=== PATIENT | male | born 1955 | race Caucasian/White ===

== ENCOUNTER 2018-10-21 15:12 | Emergency (ER) | payer MEDICARE ==
--- NOTE | 2018-10-21 15:47 | C.PDOC ---
History Of Present Illness 63 y/o male presents to the ED with complaints of rash to the abdomen and right flank. Patient reports initially rash was localized to the right flank area, onset 3 weeks ago. He then developed similar rash in the abdomen 2 weeks ago. The rash is described as painful. Patient denies any drainage from the area, fever or chills. Patient reports he had a similar rash on his left arm, which resolved with unknown topical ointment. Patient reports prior hx of craniectomy, and is on Depakote. NKDA. Time Seen by Provider: 10/21/18 15:23 Chief Complaint (Nursing): Back Pain History Per: Patient History/Exam Limitations: no limitations Onset/Duration Of Symptoms: Days Current Symptoms Are (Timing): Still Present Past Medical History Reviewed: Historical Data, Nursing Documentation, Vital Signs Vital Signs: Last Vital Signs Temp 98 F 10/21/18 15:28 Pulse 67 10/21/18 15:28 Resp 20 10/21/18 15:28 BP 134/82 10/21/18 15:28 Pulse Ox 100 10/21/18 15:28 Surgical History: No Surg Hx Family History: States: No Known Family Hx - Social History Hx Tobacco Use: No Hx Alcohol Use: No Hx Substance Use: No - Immunization History Hx Tetanus Toxoid Vaccination: No Hx Influenza Vaccination: No Hx Pneumococcal Vaccination: No Review Of Systems Except As Marked, All Systems Reviewed And Found Negative. Constitutional: Negative for: Fever, Chills Cardiovascular: Negative for: Chest Pain Respiratory: Negative for: Cough, Shortness of Breath Gastrointestinal: Negative for: Vomiting, Abdominal Pain Skin: Positive for: Rash Neurological: Negative for: Weakness Physical Exam - Physical Exam Appears: Non-toxic, No Acute Distress Skin: Warm, Rash (Erythematous swollen rash scattered to right flank and abdomen, appears to be covering more than 1 dermatome) Head: Atraumatic, Normacephalic Eye(s): bilateral: Normal Inspection, PERRL, EOMI Oral Mucosa: Moist Neck: Normal ROM Chest: Symmetrical Cardiovascular: Rhythm Regular, No Murmur Respiratory: Normal Breath Sounds, No Accessory Muscle Use Gastrointestinal/Abdominal: Soft, No Tenderness, No Distention Extremity: Bilateral: Atraumatic, Normal Color And Temperature Neurological/Psych: Oriented x3, Normal Speech ED Course And Treatment - Laboratory Results Result Diagrams: 10/21/18 16:31 10/21/18 16:31 O2 Sat by Pulse Oximetry: 100 (RA) Pulse Ox Interpretation: Normal - CT Scan/US CT Abdomen/Pelvis Other Rad Studies (CT/US): Read By Radiologist, Radiology Report Reviewed CT/US Interpretation: Accession No. : [id number]. Patient Name / ID : ANDIE Palma / [id number]. Exam Date : 10/21/2018 17:12:44 ( Approved ). Study Comment : Sex / Age : M / 63Y. Creator : Shakira Maldonado. Dictator : Travon Aragon MD. Hat Finishing Materials Preparer : Gold And Silver Assayer : Travon Aragon MD. Approver2 : Report Date : 10/21/2018 17:27:26. My Comment : . Date of service: 10/21/2018. PROCEDURE: CT Abdomen and Pelvis without intravenous contrast. HISTORY: back pain. COMPARISON: None. TECHNIQUE: Helical CT of the abdomen and pelvis was performed without oral or intravenous contrast as per referring physician request. Coronal and sagittal reformats were generated.. Radiation dose: Total exam DLP = 756.19 mGy-cm. This CT exam was performed using one or more of the following dose reduction techniques: Automated exposure control, adjustment of the mA and/or kV according to patient size, and/or use of iterative reconstruction technique. FINDINGS: LOWER THORAX: Unremarkable. Limited bilateral basilar dependent atelectasis appreciated without focal mass. Mild emphysematous change are identified the bilateral lower lobes as well. Mild cardiomegaly noted. Small hiatal hernia. LIVER: Unremarkable. No gross lesion or ductal dilatation. GALLBLADDER AND BILE DUCTS: Contracted and otherwise unremarkable appearing. PANCREAS: Unremarkable. No gross lesion or ductal dilatation. SPLEEN: Unremarkable. ADRENALS: Unremarkable. No mass. KIDNEYS AND URETERS: Limited bilateral streaky perinephric changes are identified which are nonspecific. No obstructive uropathy or radiodense urolithiasis bilaterally. The ureters normal in caliber bilaterally. No s uspicious contour abnormalities identified to suggest a mass in this noncontrast CT exam. VASCULATURE: Nonaneurysmal abdominal aortic calcific atherosclerotic changes are minimal. BOWEL: Stomach is collapsed and not well evaluated. Hiatal hernia noted above. No bowel obstruction appreciable. Limited sigmoid diverticulosis without diverticulitis. APPENDIX: None identified. No CT evidence of appendicitis. PERITONEUM: Unremarkable. No free fluid. No free air. LYMPH NODES: Unremarkable. No enlarged lymph nodes. BLADDER: Unremarkable. REPRODUCTIVE: Enlarged prostate gland. 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 OTHER FINDINGS: None. IMPRESSION: Nonspecific perinephric streaky changes are identified bilaterally. No obstructive uropathy, radiodense urolithiasis or suspicious renal findings. Urinary bladder is distended but otherwise unremarkable appearing. Limited sigmoid diverticulosis without diverticulitis. Medical Decision Making Medical Decision Making: Impression: Herpes Zoster Plan: - 600 mg PO Motrin - 800 mg PO Acyclovir - Labs pending w/ VPA level Patient continues to report that the pain is more localized over the right flank. He expresses concern for possible kidney stone. Added on CT Abdomen/Pelvis, noncontrast. Labs reviewed. VPA 38.3 Imaging reviewed, CT shows diverticulosis. Findings discussed with patient in detail. Disposition - Disposition Referrals: [facility] [Outside] [facility] [Outside] [facility] [place] [Outside] Disposition: HOME/ ROUTINE Disposition Time: 18:40 Condition: STABLE Prescriptions: Acyclovir 5% [Zovirax 5% Oint] 15 applic EXT Q3H #1 tube Valacyclovir HCl [Valtrex] 1 gm PO Q8 7 Days #21 tablet Instructions: Shingles, Low Back Pain in Adults Forms: [employer] (Pashto) - POA Present On Arrival: None - Clinical Impression Clinical Impression: Shingles, Low back pain - Scribe Statement The provider has reviewed the documentation as recorded by the Zeke Salmeron Provider Attestation: All medical record entries made by the Jeremiibamara were at my direction and personally dictated by me. I have reviewed the chart and agree that the record accurately reflects my personal performance of the history, physical exam, medical decision making, and the department course for this patient. I have also personally directed, reviewed, and agree with the discharge instructions and disposition.
[2018-10-21 16:35] LABS: BASO % 0.5 % (0.0-2.0); EOS # 0.1 K/uL (0.0-0.7); EOS % 2.1 % (0.0-4.0); HEMOGLOBIN 13.6 g/dL (12.0-18.0); LYMPH # 0.9 K/uL (1.0-4.3); LYMPH % 18.7 % (20.0-40.0); MEAN CELL VOLUME 90.5 fL (80.0-94.0); MEAN CORPUSCULAR HEMOGLOBIN 29.7 pg (27.0-31.0); MEAN CORPUSCULAR HGB CONC 32.8 g/dL (33.0-37.0); MEAN PLATELET VOLUME 9.1 fL (7.2-11.7); MONO # 0.5 K/uL (0.0-0.8); MONO % 11.4 % (0.0-10.0); NEUT # 3.2 K/uL (1.8-7.0); NEUT % 67.3 % (50.0-75.0); NRBC % 0.1 % (0.0-2.0); RBC 4.58 Mil/uL (4.40-5.90); RED CELL DISTRIBUTION WIDTH 13.9 % (11.5-14.5); WHITE BLOOD COUNT 4.7 K/uL (4.8-10.8)
[2018-10-21 16:53] LABS: ALB/GLOB RATIO 1.7 (1.0-2.1); ALBUMIN 4.1 g/dL (3.5-5.0); ALT/SGPT 23 U/L (21-72); AST/SGOT 31 U/L (17-59); BLOOD UREA NITROGEN 22 mg/dL (9-20); CALCIUM 8.8 mg/dl (8.6-10.4); GFR NON-AFRICAN AMERICAN > 60
[2018-10-21 17:27] LABS: URINE BILIRUBIN NEGATIVE (NEGATIVE); URINE BLOOD NEGATIVE (NEGATIVE); URINE CLARITY Hazy (Clear); URINE COLOR Yellow (YELLOW); URINE GLUCOSE (UA) NORMAL (Normal); URINE HYALINE CAST 0-2 /lpf (0-2); URINE LEUKOCYTE ESTERASE NEG Leu/uL (Negative); URINE PROTEIN NEGATIVE (NEGATIVE); URINE UROBILINOGEN NORMAL mg/dL (0.2-1.0)
--- NOTE | 2018-10-21 18:24 | CT ---
Date of service: 10/21/2018 PROCEDURE: CT Abdomen and Pelvis without intravenous contrast HISTORY: back pain COMPARISON: None. TECHNIQUE: Helical CT of the abdomen and pelvis was performed without oral or intravenous contrast as per referring physician request. Coronal and sagittal reformats were generated.. Radiation dose: Total exam DLP = 756.19 mGy-cm. This CT exam was performed using one or more of the following dose reduction techniques: Automated exposure control, adjustment of the mA and/or kV according to patient size, and/or use of iterative reconstruction technique. FINDINGS: LOWER THORAX: Unremarkable. Limited bilateral basilar dependent atelectasis appreciated without focal mass. Mild emphysematous change are identified the bilateral lower lobes as well. Mild cardiomegaly noted. Small hiatal hernia. LIVER: Unremarkable. No gross lesion or ductal dilatation. GALLBLADDER AND BILE DUCTS: Contracted and otherwise unremarkable appearing. PANCREAS: Unremarkable. No gross lesion or ductal dilatation. SPLEEN: Unremarkable. ADRENALS: Unremarkable. No mass. KIDNEYS AND URETERS: Limited bilateral streaky perinephric changes are identified which are nonspecific. No obstructive uropathy or radiodense urolithiasis bilaterally. The ureters normal in caliber bilaterally. No suspicious contour abnormalities identified to suggest a mass in this noncontrast CT exam. VASCULATURE: Nonaneurysmal abdominal aortic calcific atherosclerotic changes are minimal. BOWEL: Stomach is collapsed and not well evaluated. Hiatal hernia noted above. No bowel obstruction appreciable. Limited sigmoid diverticulosis without diverticulitis. APPENDIX: None identified. No CT evidence of appendicitis. PERITONEUM: Unremarkable. No free fluid. No free air. LYMPH NODES: Unremarkable. No enlarged lymph nodes. BLADDER: Unremarkable. REPRODUCTIVE: Enlarged prostate gland. 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 OTHER FINDINGS: None. IMPRESSION: Nonspecific perinephric streaky changes are identified bilaterally. No obstructive uropathy, radiodense urolithiasis or suspicious renal findings. Urinary bladder is distended but otherwise unremarkable appearing. Limited sigmoid diverticulosis without diverticulitis.
[2018-10-21 19:03] VITALS: BP 132/78; PULSE 78; RESP 18; TEMP 98
[2018-10-22 11:48] VITALS: O2SAT 100
== END 2018-10-21 19:01 | disposition home or self-care (01) ==
LOC: C.ER 15:12
DX: B02.9 Zoster without complications (principal); M54.5 Low back pain